=== PATIENT | male | born 1975 | race Caucasian/White ===

== ENCOUNTER 2017-02-19 20:20 | Inpatient (IN) | payer MEDICAID, OTHER ==
[~2017-02-19] VITALS: Ht 175.3 cm; Wt 120.1 kg
[~2017-02-19 20:20] MED LIST: ETOMIDATE 20 MG INJ ONE; PROPOFOL 200 MG INJ ONE; ROCURONIUM 50 MG INJ ONE
[2017-02-19] MEDS ORDERED: SOD CHLORIDE 0.9% 500 ML IV STA (20:24)
[2017-02-19] MEDS ORDERED: PIPER-TAZO 3.375 GM IV (PMX) 100 ML IVPB STA (20:38)
[2017-02-19] MEDS ORDERED: PROPOFOL 100 ML IV STA (20:39)
[2017-02-19] MEDS ORDERED: ETOMIDATE 20 MG INJ IV STA (20:39)
[2017-02-19] MEDS ORDERED: SOD CHLORIDE 0.9% 1,000 ML IV STA (20:39)
[2017-02-19] MEDS ORDERED: ROCURONIUM 50 MG INJ IV STA (20:39)
[2017-02-19 20:44] LABS: ADD SCAN DIFF NO
[2017-02-19 20:56] LABS: ABNORMAL IP MESSAGE 1; BASOPHILS % 0.2 % (0.0-2.0); HEMATOCRIT 22.6 % (42.0-52.0); HEMOGLOBIN 7.4 g/dl (14.0-18.0); LYMPHOCYTES # 1.6 10^3/ul (0.8-2.9); LYMPHOCYTES % 8.8 % (15.0-51.0); MEAN CORPUSCULAR HEMOGLOBIN 31.4 pg (29.0-33.0); MEAN CORPUSCULAR HGB CONC 32.7 g/dl (32.0-37.0); MEAN CORPUSCULAR VOLUME 95.8 fl (82.0-101.0); MEAN PLATELET VOLUME 11.9 fl (7.4-10.4); MONOCYTE # 2.1 10^3/ul (0.3-0.9); MONOCYTES % 11.8 % (0.0-11.0); NEUTROPHIL # 14.1 10^3/ul (1.6-7.5); NEUTROPHILS % 78.2 % (39.0-77.0); PLATELET COUNT 142 10^3/UL (140-415); RED BLOOD COUNT 2.36 10^6/ul (4.70-6.10); RED CELL DISTRIBUTION WIDTH 17.5 % (11.5-14.5)
[2017-02-19 21:02] LABS: ALBUMIN 3.1 g/dl (3.3-4.9)
[2017-02-19 21:03] LABS: CHLORIDE 99 mmol/L (97-110); INR 2.17; POTASSIUM 4.2 mmol/L (3.5-5.1); PROTIME 24.4 Sec (12.2-14.2); PT RATIO 1.9; SODIUM 139 mmol/L (135-144)
[2017-02-19 21:04] LABS: PARTIAL THROMBOPLASTIN TIME 35.7 Sec (25.0-35.0)
[2017-02-19 21:05] LABS: ALKALINE PHOSPHATASE 123 IU/L (42-121); ANION GAP 18 (8-16); ASPARTATE AMINO TRANSFERASE 76 IU/L (15-46); BILIRUBIN,INDIRECT 2.7 mg/dl (0-1.1); BLOOD UREA NITROGEN 26 mg/dl (7-20); CARBON DIOXIDE 26 mmol/L (21-31); CREATININE 0.75 mg/dl (0.61-1.24); TOTAL PROTEIN 7.8 g/dl (6.1-8.1)
[2017-02-19 21:06] LABS: ALANINE AMINOTRANSFERASE 39 IU/L (13-69); CALCIUM 8.3 mg/dl (8.4-10.2); GLUCOSE 224 mg/dl (70-220)
--- NOTE | 2017-02-19 21:07 | RADRPT ---
PROCEDURE: XR Chest. CLINICAL INDICATION: Assess endotracheal tube placement. TECHNIQUE: Single frontal view of the chest was obtained. COMPARISON: No. FINDINGS: The soft tissues are normal. The endotracheal tube is well-positioned at T2. There are osteophytes in the thoracic spine. There is a suboptimal inspiration. The heart is borderline enlarged. The cardiomediastinal silhouette and hilar structures are normal. The pulmonary vasculature is normal. There is a left-sided aorta. The lungs are clear. The costophrenic angles are normal. IMPRESSION: 1. The endotracheal tube is well positioned near T2. 2. Suboptimal inspiration with no evidence of active cardiopulmonary disease. RPTAT:AAJJ Physician Alex Date Time Electronically viewed and signed by Eyad [place] Physician on 02/19/2017 21:06 CATRACHITA/
[2017-02-19 21:09] LABS: ACETAMINOPHEN < 10.0 ug/ml (10.0-30.0); ALBUMIN/GLOBULIN RATIO 0.65; ETHANOL < 10.0 mg/dl
--- NOTE | 2017-02-19 21:10 | RADRPT ---
PROCEDURE: CT Brain without contrast. CLINICAL INDICATION: Stroke TECHNIQUE: A CT of the brain was performed on a [employer] 64-slice CT scanner utilizing axial imaging from the skull base through the vertex without IV contrast. Multiplanar reformatted images were made. Images were reviewed on a PACS workstation. The CTDIvol is 45.8 mGy and the DLP is 940 .95 mGycm. One of the following 3 dose reduction techniques were used: Automated exposure control; adjustment of the mA and/or kV according to patient size; or use of iterative reconstruction technique. COMPARISON: None FINDINGS: There is no intracranial hemorrhage, mass effect, or midline shift. No extra-axial fluid collection is seen. The ventricles and sulci are normal in size and configuration. The density of the brain is normal, and the alejandre white matter differentiation appears well-preserved. The visualized scalp is remarkable for multiple nodular soft tissue masses and correlate with possib le neurofibromatosis. The visualized orbits are normal. The bilateral paranasal sinuses demonstrate complete obstruction of the left maxillary sinus. A small air-fluid levels noted in the left poste rior ethmoid sinuses. The bilateral mastoid air cells and middle ear cavities are clear. IMPRESSION: 1. No evidence of acute hemorrhage, infarcts, or acute intracranial pathology. Consider MRI with di ffusion and contrast to further evaluate. 2. Diffuse nodular subcutaneous scalp lesions. Recommend additional imaging with MRI and consider neurofibromatosis type 1 and other neoplasms of the scalp. 3. Chronic left maxillary sinusitis and obstruction of the left ostiomeatal complex. 4. Acute left posterior ethmoid sinus disease. A call report was made to Saúl Benz at 02/19/2017 9:08:02 PM following the completion of the exam ination by the undersigned. RPTAT: HDC .Carolyn Heard MD, MD Date Time Electronically viewed and signed by .Carolyn Heard MD, MD on 02/19/2017 21:10 .C/
[2017-02-19] MEDS ORDERED: LACTULOSE 30ML CUP NGT ONE (21:30)
[2017-02-19 21:40] LABS: AADO2 Arterial 527.8 mmHg (7.0-24.0); Allen Test ACCEPTAB; Arterial Base Excess -0.4 mmol/L (-3.0-3); Arterial COHb 0.6 % (0.0-3.0); Arterial HCO3 23.7 mmol/L (22.0-26.0); Arterial MetHb 0.3 % (0.0-1.5); Arterial Total Hemglobin 7.8 g/dl (12.0-18.0); MODE VENT - AC
[2017-02-19] MEDS ORDERED: SOD CHLORIDE 0.9% 1,000 ML IV ONE (22:30)
--- NOTE | 2017-02-19 22:44 | RADRPT ---
PROCEDURE: XR Chest. CLINICAL INDICATION: Nasogastric tube placement. TECHNIQUE: Portable AP semi - supine view of the chest was obtained. COMPARISON: 02/19/2017 at 20:44 FINDINGS: The cardiomediastinal silhouette is within normal limits. Distal tip of the endotracheal tube remai ns in good position approximately 4 cm above the lisa. A new nasogastric/orogastric tube is seen with the distal tip below the diaphragm and inferior margin of the exposure in the region of the sto mach. The lungs are grossly clear. There is no evidence for pleural effusion, pneumothorax or pulm onary vascular congestion. The osseous structures are intact with no evidence for acute abnormality . RPTAT:HJJR IMPRESSION: 1. Distal tip of the new nasogastric/orogastric tube is below the diaphragm in the region of the st omach. 2. Endotracheal tube tip remains in good position approximately 4 cm above the lisa. 3. No evidence of acute intrathoracic pathology. Physician Gregg Date Time Electronically viewed and signed by Physician Gregg on 02/19/2017 22:44 /
[2017-02-19 23:12] VITALS: TEMP 99.1
[2017-02-20] VITALS (94 sets, daily range): BP systolic 53–180; BP diastolic 25–97; PULSE 70–140; RESP 18–43; Ht 175.3 cm; Wt 120.1 kg
--- NOTE | 2017-02-20 00:18 | ERA ---
ER Documentation Chief Complaint Date/Time DATE: 02/20/17 TIME: 00:03 Chief Complaint AMS HPI This 42-year-old male is brought in by ambulance because he was found at home with altered mental status and complete unresponsiveness. Family had initiated CPR at home because they were unable to feel pulses in the patient. Patient is completely unresponsive and paramedics have no current past medical history. ROS Unobtainable Medications Home Meds No Active Prescriptions or Reported Meds Allergies Allergies: Coded Allergies: No Known Drug Allergies (Unverified Allergy, Unknown, 02/19/17) PMhx/Soc Medical and Surgical Hx: Unable to obtain Hx Alcohol Use: No Hx Substance Use: No Hx Tobacco Use: No Smoking Status: Unknown if ever smoked Physical Exam Vitals Vital Signs Date Time Temp Pulse Resp B/P Pulse Ox O2 Delivery O2 Flow Rate FiO2 02/19/17 23:28 118 32 100 80 02/19/17 23:12 99.1 02/19/17 22:00 128 127/54 02/19/17 21:18 130 20 100 100 02/19/17 21:00 132 164/81 100 Mechanical Ventilator 02/19/17 20:24 102.5 146 36 138/124 100 02/19/17 20:20 Non Rebreather 15 Physical Exam Const: [] Severe distress, patient is occasionally twitching spitting completely unresponsive Head: Atraumatic Eyes: Pupils dilated and sluggish response to light, roving eye movements, pronounced scleral icterus ENT: Normal External Ears, Nose and Mouth. Neck: Full range of motion.. No JVD Resp: Bilateral rhonchorous breath sounds with bag mask ventilation Cardio: Regular tachycardia no murmurs Abd: Soft,, non distended. Normal bowel sounds Skin: No petechiae or rashes, jaundice Back: No midline or flank tenderness Ext: No cyanosis, or edema Neur: Patient completely unresponsive to stimuli, is moving all 4 extremities at different times, roving eye movements, positive corneal reflex, no other reflexes Result Diagram: 02/19/17202902/19/17 2030 Results 24 hrs Laboratory Tests Test 02/19/17 20:30 02/19/17 20:38 02/19/17 21:31 02/19/17 22:50 White Blood Count 18.010^3/ul Red Blood Count 2.3610^6/ul Hemoglobin 7.4g/dl Hematocrit 22.6% Mean Corpuscular Volume 95.8fl Mean Corpuscular Hemoglobin 31.4pg Mean Corpuscular Hemoglobin Concent 32.7g/dl Red Cell Distribution Width 17.5% Platelet Count 03637^3/UL Mean Platelet Volume 11.9fl Neutrophils % 78.2% Lymphocytes % 8.8% Monocytes % 11.8% Eosinophils % 0.0% Basophils % 0.2% Nucleated Red Blood Cells % 0.0/100WBC Neutrophils # 14.110^3/ul Lymphocytes # 1.610^3/ul Monocytes # 2.110^3/ul Eosinophils # 0.010^3/ul Basophils # 0.010^3/ul Nucleated Red Blood Cells # 0.010^3/ul Prothrombin Time 24.4Sec Prothrombin Time Ratio 1.9 INR International Normalized Ratio 2.17 Activated Partial Thromboplast Time 35.7Sec Sodium Level 139mmol/L Potassium Level 4.2mmol/L Chloride Level 99mmol/L Carbon Dioxide Level 26mmol/L Anion Gap 18 Blood Urea Nitrogen 26mg/dl Creatinine 0.75mg/dl Glucose Level 224mg/dl Hemoglobin A1c 5.7% Lactic Acid Level 5.3mmol/L 5.5mmol/L Calcium Level 8.3mg/dl Total Bilirubin 3.0mg/dl Direct Bilirubin 0.30mg/dl Indirect Bilirubin 2.7mg/dl Aspartate Amino Transf (AST/SGOT) 76IU/L Alanine Aminotransferase (ALT/SGPT) 39IU/L Alkaline Phosphatase 123IU/L Ammonia 306umol/l Troponin I 1.020ng/ml Total Protein 7.8g/dl Albumin 3.1g/dl Globulin 4.70g/dl Albumin/Globulin Ratio 0.65 Acetaminophen Level < 10.0ug/ml Ethyl Alcohol Level < 10.0mg/dl Bedside Glucose 231mg/dL Blood Gas Specimen Source Blood arterial Arterial Blood Date Drawn 02/19/2017 9:20:18 PM Arterial Blood pH (Temp corrected) 7.432 Arterial Blood pCO2 (Temp correct) 36.4mmhg Arterial Blood pO2 (Temp corrected) 148.8mmHG Arterial Blood HCO3 23.7mmol/L Arterial Blood Base Excess -0.4mmol/L Arterial Blood Oxygen Saturation 98.9mmHG Jackson Test ACCEPTAB Arterial Blood Gas Puncture Site Right Radial Arterial Blood Carboxyhemoglobin 0.6% Arterial Blood Methemoglobin 0.3% Blood Gas A-a O2 Differential 527.8mmHg Oxyhemoglobin Percent 98.0% Total Hemoglobin 7.8g/dl Blood Gas Temperature 37.0C Blood Gas Respiration Rate 16.0 Blood Gas Actual Respiration Rate 29 Blood Gas Modality VENT - AC FiO2 100.0% Blood Gas Tidal Volume 550.0mL Blood Gas Low PEEP Setting 5.0cmH2O Blood Gas Notified Whom UP Blood Gas Notified Time 02/19/2017 9:40:08 PM Current Medications Medications (Trade) Dose Ordered Sig/Kaylah Route PRN Reason Start Time Stop Time Status Last Admin Dose Admin Sodium Chloride 500 ml @ 500 mls/hr Q1H STAT IV 02/19/17 20:24 02/19/17 21:23 DC 02/19/17 21:30 Piperacillin Sod/ Tazobactam Sod 100 ml @ 200 mls/hr ONCE STAT IVPB 02/19/17 20:38 02/19/17 21:07 DC 02/19/17 21:37 Sodium Chloride (NS) 1,000 ml @ 1,000 mls/hr Q1H STAT IV 02/19/17 20:39 02/19/17 21:38 DC 02/19/17 21:28 Rocuronium [place] (Zemuron) 100 mg ONCE STAT IV 02/19/17 20:39 02/19/17 20:41 DC 02/19/17 21:28 Etomidate 20 mg 20 mg ONCE STAT IV 02/19/17 20:39 02/19/17 20:41 DC 02/19/17 21:27 Propofol (Diprivan) 100 ml @ 3 mls/hr ONCE STAT IV 02/19/17 20:39 02/21/17 05:58 02/19/17 21:26 Lactulose 40 gm 40 gm ONCE ONCE NGT 02/19/17 21:30 02/19/17 21:31 DC 02/19/17 22:12 Sodium Chloride (NS) 1,000 ml @ 1,000 mls/hr Q1H ONCE IV 02/19/17 22:30 02/19/17 23:29 DC 02/19/17 23:49 Procedures/MDM Hepatic encephalopathy and upper GI bleed. Patient was in extremis on arrival. Occasional nonrhythmic twitching with tachypnea and spitting. Patient was intubated for airway protection and to be able to obtain a CAT scan as his presentation seemed consistent with possible intracerebral hemorrhage. Negative for hemorrhage or obvious large stroke. Patient's ammonia was extremely elevated which likely explains his altered mental status. Is also febrile on arrival and was given Zofran for possible sepsis although source is still not clear. Fever may be associated with his muscle twitching. After OGT was placed patient had return of dark fluid consistent with old blood. Patient does have a history of esophageal varices. I spoke to Dr. Paez notified of the patient who will see in consult. I am transfusing 2 units of packed red blood cells. Patient also has an elevated troponin of 1. EKG currently shows no tachycardia repeating EKG. Unable to give heparin because of current GI bleed. Troponin will be trended. Patient was given a total of 60 mg of lactulose through NG tube in the emergency room so far. Was given 3 L of fluid as well. He is being admitted to ICU for further critical care management. I spoke with who will be admitting. EKG interpretation: Sinus tachycardia rate of 148, normal axis, no ST or T-wave changes concerning for acute ischemia, court recording monitor interpretation: Sinus tachycardia improved with fluid administration, no other arrhythmias Chest x-ray interpretation: I see no acute process, no widened mediastinum, no pneumothorax, no pulmonary edema, no fractures CT head interpretation: No acute process, no hemorrhage, no mass-effect no midline shift, no fractures. Critical care time 56 minutes: This includes treatment of extremely unstable patient with multifactorial illness, very careful fluid administration, blood product administration, ventilator management, treatment of unstable vital signs , discussion with admitting doctor and patient's family, chart review, multiple visits the patient's bedside to reassess status. This does not include any billable procedures ET intubation note: Patient was bag mask ventilated to 100% oxygenation, RSI was used with etomidate and rocuronium. Patient was easily intubated with a 7.5 ET tube through visualized cords using a MAC 4 blade. One attempt was made there were no complications. Oxygenation was 100% after the procedure with good entitled CO2 color change. Confirmed by chest x-ray. Perfusion Reassessment for Septic Shock: Time 2316 Temp 98.9, Pulse 111, RR 16, BP 126/79 Heart Exam: [Tachycardic] Lung Exam: [No Crackles] Capillary Refill: [Approximately 2 seconds] Peripheral Pulses: [Radially present] Skin: [Jaundice, not mottled] Departure Diagnosis: Primary Impression: Hepatic encephalopathy Additional Impressions: Sepsis Upper GI bleed Blood loss anemia Respiratory failure Non-STEMI (non-ST elevated myocardial infarction) Condition: Critical EDI IBARRA DO February 20, 2017 00:15
[2017-02-20] MEDS ORDERED: LACTULOSE 30ML CUP NGT ONE (00:30)
[2017-02-20] MEDS ORDERED: NORepinephrine 8MG/250 ML (PMX 250 ML IV SCH ×2 (00:30→16:30)
[2017-02-20] MEDS ORDERED: SOD CHLORIDE 0.9% 500 ML IV ONE (00:30)
[2017-02-20] MEDS ORDERED: VANCOMYCIN IV PER PHARMACY XX SCH (00:30)
[2017-02-20] MEDS: PROPOFOL 100 ML IV SCH ×4 (01:35→12:48)
[2017-02-20] MEDS ORDERED: VANCOMYCIN 2 GM in SOD CHLORIDE 0.9% 500 ML IVPB ONE (02:00)
[2017-02-20] MEDS: OCTREOTIDE 1 MG in SOD CHLORIDE 0.9% 95 ML IV SCH ×3 (02:04→21:28)
[2017-02-20] MEDS ORDERED: morphine 4 MG/ML VIAL IV PRN (06:00)
[2017-02-20] MEDS ORDERED: LORAZEPAM 2 MG INJ IV ONE (06:00)
[2017-02-20] MEDS: SOD CHLORIDE 0.45% 1,000 ML IV SCH ×2 (08:13→08:24)
[2017-02-20] MEDS: CEFEPIME 1GM/50 ML (PMX) 50 ML IVPB SCH ×2 (08:22→20:47)
[2017-02-20] MEDS: LORAZEPAM 2 MG INJ IV PRN ×3 (08:29→15:24)
[2017-02-20] MEDS: PANTOPRAZOLE IV 80 MG in SOD CHLORIDE 0.9% 100 ML IV SCH ×2 (08:43→17:51)
[2017-02-20 08:58] LABS: ADD SCAN DIFF NO
[2017-02-20] MEDS: VANCOMYCIN 2 GM in SOD CHLORIDE 0.9% 500 ML IVPB ONE ×2 (09:00→09:27)
[2017-02-20 09:02] LABS: ABNORMAL IP MESSAGE 1; MEAN CORPUSCULAR HEMOGLOBIN 29.9 pg (29.0-33.0); MEAN CORPUSCULAR VOLUME 93.3 fl (82.0-101.0); MEAN PLATELET VOLUME 11.5 fl (7.4-10.4); PLATELET COUNT 128 10^3/UL (140-415); RED BLOOD COUNT 2.68 10^6/ul (4.70-6.10); RED CELL DISTRIBUTION WIDTH 19.1 % (11.5-14.5)
[2017-02-20] MEDS: ACETAMINOPHEN 325 MG TAB PO PRN ×2 (09:14→15:23)
--- NOTE | 2017-02-20 09:16 | HP ---
DATE OF ADMISSION: 02/19/2017 TIME SEEN: 2300 CHIEF COMPLAINT: Altered mentation and unresponsiveness. HISTORY OF PRESENT ILLNESS: The patient is a 42-year-old male with history of alcohol abuse who pre sents to the emergency department after the patient was found to be severely unresponsive at home. When EMS arrived, family was performing CPR, but he actually did have a strong pulse and was tachyc ardic in the 140s. When the patient presented to the ER, he was very minimally responsive with some involuntary movements. The patient was orally intubated. Laboratory values were notable for BUN 2 6, glucose 224, total bilirubin 3. AST 76, ammonia 306. First troponin 1.02. WBC 18,000, hemoglobi n 7.4. When an OG tube was placed, dark fluid was suctioned. The patient was also febrile with a t emperature of 102.5. The patient has been started on blood transfusion and currently admitted to [facility]. REVIEW OF SYSTEMS: Unable to assess. PAST MEDICAL HISTORY: Unknown. PAST SURGICAL HISTORY: Unknown. SOCIAL HISTORY: History of alcohol abuse. ALLERGIES: NO KNOWN DRUG ALLERGIES. HOME MEDICATIONS: None listed. PHYSICAL EXAMINATION: VITAL SIGNS: Blood pressure 127/52, heart rate 128, respiratory rate 20, temperature 99.1, oxygen s aturation 100% on 80% FiO2 on the vent. GENERAL: The patient is intubated, sedated, on propofol; however, he is noted to be moving his body and looking comfortable. HEENT: Normocephalic. His pupils are sluggish. CARDIOVASCULAR: ____ with regular rhythm. LUNGS: He has rhonchi with decreased breath sounds at the bases. ABDOMEN: Soft, nondistended. EXTREMITIES: No edema. NEUROLOGIC: Currently patient intubated and sedation, unable to fully assess. LABORATORY DATA: Pertinent positives as mentioned in the HPI. IMAGING: Brain CT shows no evidence of acute hemorrhage, infarct, or intracranial pathology; howeve r, a diffuse nodular subcutaneous scalp lesion was noted along with chronic left maxillary sinusitis and obstruction of the left ostiomeatal complex. Also noted was acute left posterior ethmoid ____. Chest x-ray: Shows heart is borderline enlarged with no evidence of acute cardiopulmonary diseas e. IMPRESSION: 1. Hepatic encephalopathy. 2. Ventilator-dependent respiratory failure, secondary to encephalopathy. 3. Anemia, likely secondary to gastrointestinal bleed. 4. Rule out gastrointestinal bleed. 5. Sepsis, as evidenced by fever, leukocytosis, and tachycardia, possibly from early developing asp iration pneumonia given presentation of altered mentation. 6. Positive troponin. 7. Hyperglycemia, likely undiagnosed diabetes. 8. Diffuse nodular subcutaneous scalp lesion. 9. Acute left posterior ethmoid sinus disease. 10. Chronic maxillary sinusitis. PLAN: Continue ICU monitoring. Continue ventilator support. A GI consult has been placed in the E R, so will follow up on recommendation. Will start him on a lactulose enema given severely elevated ammonia. Continue blood transfusion and monitor H and H closely. Given positive troponin, will pl rachel a cardiology consult, will obtain a 2-D echo and trend his troponins, but seems like the result of demand ischemia. EKG without ST-elevation or depression. Will check an A1c, FOBT. Also given s eptic presentation, will send blood culture and urine culture as well as culture from tracheal aspir ate. He will be placed on broad-spectrum antibiotics. Given the patient was unresponsive with maynor re altered mentation, he was at risk for aspiration even though chest x-ray is not suggestive of shaka t. Will do a urine drug toxicology screen. Also given abnormal brain CT showing diffuse nodular millan bcutaneous scalp lesion, will obtain an MRI for further evaluation. Further workup and management per clinical course. Dictated By: CHANTAL WASHINGTON/AV Conf#: [id number] DID#: [id number]
[2017-02-20 09:23] LABS: ALBUMIN 2.7 g/dl (3.3-4.9)
[2017-02-20 09:24] LABS: POTASSIUM 4.1 mmol/L (3.5-5.1)
[2017-02-20 09:26] LABS: ALBUMIN/GLOBULIN RATIO 0.6; BILIRUBIN,INDIRECT 2.7 mg/dl (0-1.1); BILIRUBIN,TOTAL 3.7 mg/dl (0.2-1.3); CREATININE 0.92 mg/dl (0.61-1.24); IRON 71 ug/dl (35-150); TOTAL PROTEIN 7.2 g/dl (6.1-8.1)
[2017-02-20 09:27] LABS: CALCIUM 7.6 mg/dl (8.4-10.2)
[2017-02-20] MEDS ORDERED: FENTAnyl (DRIP) 1000 mcg/100mL 100 ML IV SCH (09:30)
[2017-02-20 09:32] LABS: AADO2 Arterial 390.3 mmHg (7.0-24.0); Allen Test ACCEPTAB; Arterial Base Excess 3.9 mmol/L (-3.0-3); Arterial COHb 0.3 % (0.0-3.0); Arterial Fraction of Oxyhgb 92.5 % (93.0-99.0); Arterial HCO3 27.5 mmol/L (22.0-26.0); Arterial MetHb 0.4 % (0.0-1.5); Arterial Total Hemglobin 8.3 g/dl (12.0-18.0); MODE VENT - AC
[2017-02-20 09:35] LABS: TOTAL IRON BINDING CAPACITY 294 ug/dl (241-421)
[2017-02-20 09:55] LABS: BASOPHIL # 0.3 10^3/ul (0.0-0.1); LYMPHOCYTES # 2.6 10^3/ul (0.8-2.9); MONOCYTE # 1.8 10^3/ul (0.3-0.9); NEUTROPHIL # 21.1 10^3/ul (1.6-7.5)
[2017-02-20 09:56] LABS: HYPOCHROMASIA 1+
[2017-02-20] MEDS ORDERED: LIDOCAINE 1% (MPF) 5 ML VIAL SC ONE ×3 (10:00→16:30)
[2017-02-20] MEDS ORDERED: SOD CHLORIDE 0.9% 1,000 ML IV ONE ×2 (10:30→21:30)
--- NOTE | 2017-02-20 10:49 | CONS ---
Date/Time of Note Date/Time of Note DATE: 02/20/17 TIME: 10:41 Assessment/Plan Assessment/Plan Additional Assessment/Plan SIRS Respiratory failure Acute blood loss anemia with presumed GI bleed Elevated troponin Elevated ammonia concerning for hepatic encephalopathy -Patient's elevated troponin likely manifestation of GI bleed, fevers and possible sepsis. Given GI bleed, unable to give aspirin at the current time. Given abnormal liver function, unable to give statin at the current time. Given labile blood pressure, unable to give beta-shon at the current time. Would continue aggressive volume resuscitation. Check serial cardiac enzymes, continue telemetry monitoring, check echocardiogram. Consultation Date/Type/Reason Admit Date/Time February 19, 2017 at 22:58 Type of Consultation: cv Reason for Consultation Elevated troponin Hx of Present Illness This is a 42-year-old male who was found at home unresponsive. History was obtained from the medical chart. Family was unsure if patient had a pulse and CPR was initiated until EMS arrived. Patient did have a pulse upon arrival patient transferred to the emergency room for further evaluation and care. Patient intubated and found to have a GI bleed with significant abnormal laboratory studies with severe anemia, elevated ammonia levels and lactic acid as well as elevated troponin. Patient status post blood transfusion and transferred to the ICU for further management and care. Given elevated troponins, cardiology consultation was requested. Discussion with nursing staff , patient has remained off IV pressors. He is currently sedated and receiving IV fluids. Unable to be performed at the current time given patient's mental status Past Medical History Unknown Past Surgical History Unknown Social History History of alcohol use Smoking Status: Unknown if ever smoked Exam/Review of Systems Vital Signs Vitals Vital Signs Date Time Temp Pulse Resp B/P Pulse Ox O2 Delivery O2 Flow Rate FiO2 02/20/17 09:15 131 33 103/44 97 Mechanical Ventilator 02/20/17 08:00 103.0 02/20/17 05:49 70 02/19/17 20:20 15 Intake and Output 02/19/17 02/19/17 02/20/17 15:00 23:00 07:00 Intake Total 674 ml Output Total 2050 ml Balance -1376 ml Exam Sedated and intubated, no apparent distress Head: normocephalic ENMT: intubated Respiratory: other (Coarse breath sounds bilaterally, no wheezing) Cardiovascular: other (S1-S2 heard), regular rate and rhythm (Tachycardic) Gastrointestinal: bowel sounds, other (No grimacing or guarding with palpation of abdomen), soft Extremities: edema (Trace) Results Result Diagram: 02/20/17 0849 02/20/17 0849 Results 24 hrs Laboratory Tests Test 02/19/17 20:30 02/19/17 20:38 02/19/17 21:31 02/19/17 22:50 White Blood Count 18.0 H Red Blood Count 2.36 L Hemoglobin 7.4 L Hematocrit 22.6 L Mean Corpuscular Volume 95.8 Mean Corpuscular Hemoglobin 31.4 Mean Corpuscular Hemoglobin Concent 32.7 Red Cell Distribution Width 17.5 H Platelet Count 142 Mean Platelet Volume 11.9 H Neutrophils % 78.2 H Lymphocytes % 8.8 L Monocytes % 11.8 H Eosinophils % 0.0 Basophils % 0.2 Nucleated Red Blood Cells % 0.0 Neutrophils # 14.1 H Lymphocytes # 1.6 Monocytes # 2.1 H Eosinophils # 0.0 Basophils # 0.0 Nucleated Red Blood Cells # 0.0 Prothrombin Time 24.4 H Prothrombin Time Ratio 1.9 INR International Normalized Ratio 2.17 Activated Partial Thromboplast Time 35.7 H Sodium Level 139 Potassium Level 4.2 Chloride Level 99 Carbon Dioxide Level 26 Anion Gap 18 H Blood Urea Nitrogen 26 H Creatinine 0.75 Glucose Level 224 H Hemoglobin A1c 5.7 Lactic Acid Level 5.3 *H 5.5 *H Calcium Level 8.3 L Total Bilirubin 3.0 H Direct Bilirubin 0.30 H Indirect Bilirubin 2.7 H Aspartate Amino Transf (AST/SGOT) 76 H Alanine Aminotransferase (ALT/SGPT) 39 Alkaline Phosphatase 123 H Ammonia 306 H Troponin I 1.020 *H Total Protein 7.8 Albumin 3.1 L Globulin 4.70 H Albumin/Globulin Ratio 0.65 Acetaminophen Level < 10.0 L Ethyl Alcohol Level < 10.0 Bedside Glucose 231 H Blood Gas Specimen Source Blood arterial Arterial Blood Date Drawn 02/19/2017 9:20:18 PM Arterial Blood pH (Temp corrected) 7.432 Arterial Blood pCO2 (Temp correct) 36.4 Arterial Blood pO2 (Temp corrected) 148.8 H Arterial Blood HCO3 23.7 Arterial Blood Base Excess -0.4 Arterial Blood Oxygen Saturation 98.9 H Jackson Test ACCEPTAB Arterial Blood Gas Puncture Site Right Radial Arterial Blood Carboxyhemoglobin 0.6 Arterial Blood Methemoglobin 0.3 Blood Gas A-a O2 Differential 527.8 H Oxyhemoglobin Percent 98.0 Total Hemoglobin 7.8 L Blood Gas Temperature 37.0 Blood Gas Respiration Rate 16.0 Blood Gas Actual Respiration Rate 29 Blood Gas Modality VENT - AC FiO2 100.0 Blood Gas Tidal Volume 550.0 Blood Gas Low PEEP Setting 5.0 Blood Gas Notified Whom UP Blood Gas Notified Time 02/19/2017 9:40:08 PM Test 02/20/17 00:10 02/20/17 05:40 02/20/17 08:34 02/20/17 08:49 Lactic Acid Level 4.9 *H Lab Scanned Report BLOOD TRANSFUSION Blood Gas Specimen Source Blood arterial Arterial Blood Date Drawn 02/20/2017 9:25:28 AM Arterial Blood pH (Temp corrected) 7.490 H Arterial Blood pCO2 (Temp correct) 36.9 Arterial Blood pO2 (Temp corrected) 69.1 L Arterial Blood HCO3 27.5 H Arterial Blood Base Excess 3.9 H Arterial Blood Oxygen Saturation 93.2 L Jackson Test ACCEPTAB Arterial Blood Gas Puncture Site Right Radial Arterial Blood Carboxyhemoglobin 0.3 Arterial Blood Methemoglobin 0.4 Blood Gas A-a O2 Differential 390.3 H Oxyhemoglobin Percent 92.5 L Total Hemoglobin 8.3 L Blood Gas Temperature 37.0 Blood Gas Respiration Rate 16.0 Blood Gas Actual Respiration Rate 34 Blood Gas Modality VENT - AC FiO2 70.0 Blood Gas Tidal Volume 550.0 Blood Gas Low PEEP Setting 5.0 Blood Gas Notified Whom BT Blood Gas Notified Time 02/20/2017 9:31:46 AM White Blood Count 26.1 #H Red Blood Count 2.68 L Hemoglobin 8.0 L Hematocrit 25.0 L Mean Corpuscular Volume 93.3 Mean Corpuscular Hemoglobin 29.9 Mean Corpuscular Hemoglobin Concent 32.0 Red Cell Distribution Width 19.1 H Platelet Count 128 L Mean Platelet Volume 11.5 H Neutrophils % 81.0 H Band Neutrophils % 1.0 Lymphocytes % 10.0 L Monocytes % 7.0 Basophils % 1.0 Neutrophils # 21.1 H Lymphocytes # 2.6 Monocytes # 1.8 H Basophils # 0.3 H Polychromasia Hypochromasia 1+ Sodium Level 144 Potassium Level 4.1 Chloride Level 107 Carbon Dioxide Level 26 Anion Gap 15 Blood Urea Nitrogen 36 H Creatinine 0.92 Glucose Level 138 # Calcium Level 7.6 L Iron Level 71 Total Iron Binding Capacity 294 Percent Iron Saturation 24 Ferritin 29.0 Total Bilirubin 3.7 H Direct Bilirubin 1.00 #H Indirect Bilirubin 2.7 H Aspartate Amino Transf (AST/SGOT) 84 H Alanine Aminotransferase (ALT/SGPT) 40 Alkaline Phosphatase 114 Total Protein 7.2 Albumin 2.7 L Globulin 4.50 H Albumin/Globulin Ratio 0.60 Medications Medications Current Medications Pantoprazole 80 mg/Sodium Chloride 100 ml @ 10 mls/hr Q10H IV Last administered on 02/20/17 08:43; Admin Dose 10 MLS/HR; Start 02/20/17 at 00:24 Octreotide Acetate 1 mg/ Sodium Chloride 100 ml @ 5 mls/hr Q20H IV Last administered on 02/20/17 08:21; Admin Dose 5 MLS/HR; Start 02/20/17 at 00:24 Cefepime HCl 50 ml @ 100 mls/hr Q12 IVPB Last administered on 02/20/17 08:22 ; Admin Dose 100 MLS/HR; Start 02/20/17 at 00:30 Propofol (Diprivan) 100 ml @ 3 mls/hr Q12H IV Last administered on 02/20/17 08 :47; Admin Dose 30 MLS/HR; Start 02/20/17 at 02:00 Lorazepam 1 mg 1 mg Q1HWA PRN IV ANXIETY Last administered on 02/20/17 08:29; Admin Dose 1 MG; Start 02/20/17 at 06:00 Norepinephrine/ Dextrose (Levophed/D5W) 500 ml @ 1.87 mls/hr TITRATE IV ; Start 02/20/17 at 09:00 Morphine Sulfate (morphine) 3 mg Q4H PRN IV PAIN LEVEL 4-6 Last administered on 02/20/17 08:07; Admin Dose 3 MG; Start 02/20/17 at 06:00; Stop 02/23/17 at 05:59 Lactulose 100 ml 100 ml Q8 [place] ; Start 02/20/17 at 14:00 Vancomycin HCl 2 gm/Sodium Chloride 500 ml @ 125 mls/hr ONCE ONCE IVPB Last administered on 02/20/17 09:00; Admin Dose 125 MLS/HR; Start 02/20/17 at 10:00 ; Stop 02/20/17 at 13:59 Vancomycin HCl/ Sodium Chloride (Vancocin/NS) 250 ml @ 83.333 mls/ hr Q12H IVPB ; Start 02/20/17 at 22:00 Acetaminophen 650 mg 650 mg Q6H PRN PO PAIN AND OR ELEVATED TEMP Last administered on 02/20/17 09:14; Admin Dose 650 MG; Start 02/20/17 at 09:00 Fentanyl 100 ml @ 2.5 mls/hr TITRATE IV ; Start 02/20/17 at 09:30 Sodium Chloride 1,000 ml @ 125 mls/hr Q8H IV ; Start 02/20/17 at 10:30 Sodium Chloride (NS) 1,000 ml @ 1,000 mls/hr Q1H ONCE IV Last administered on 02/20/17 10:36; Admin Dose 1,000 MLS/HR; Start 02/20/17 at 10:30; Stop at 11:29 Procedures Procedures ECG done this morning demonstrates sinus tachycardia at 135 bpm, QRS 60 ms, nonspecific STT wave abnormalities Uriel Paez DO February 20, 2017 10:49
[2017-02-20 11:41] LABS: CK-MB 8.38 ng/ml (0.0-2.4)
[2017-02-20 11:42] LABS: ADD UMIC YES; URINE BILIRUBIN (Dip) 1+ (NEGATIVE); URINE BLOOD (Dip) 3+ (NEGATIVE); URINE GLUCOSE (Dip) NEGATIVE (NEGATIVE); URINE KETONES (Dip) 15 (NEGATIVE); URINE LEUKOCYTE ESTERASE (Dip) TRACE (NEGATIVE); URINE NITRITE (Dip) NEGATIVE (NEGATIVE); URINE TOTAL PROTEIN (Dip) TRACE (NEGATIVE); URINE UROBILINOGEN (Dip) 1.0 E.U./dL (0.1-1.0)
[2017-02-20 11:45] LABS: TROPONIN-I 4.95 ng/ml (0.00-0.12)
[2017-02-20] MEDS: SOD CHLORIDE 0.9% 1,000 ML IV SCH ×2 (12:13→18:30)
[2017-02-20] MEDS: METOPROLOL 25 MG TAB GTB SCH ×2 (12:18→20:35)
[2017-02-20 12:21] LABS: ICTOTEST NEGATIVE (NEGATIVE); URINE COLOR AMBER (YELLOW)
[2017-02-20 12:22] LABS: BACTERIA,URINE OCCASIONAL
[2017-02-20 12:26] LABS: HEMATOCRIT 25.3 % (42.0-52.0)
[2017-02-20 12:27] LABS: BARBITURATES Negative (NEGATIVE); BENZODIAZEPINES Negative (NEGATIVE); COCAINE Negative (NEGATIVE)
[2017-02-20 12:56] LABS: CANNABINOIDS Positive (NEGATIVE)
[2017-02-20 12:57] LABS: OPIATES Positive (NEGATIVE)
--- NOTE | 2017-02-20 12:58 | CONS ---
DATE OF ADMISSION: 02/19/2017 DATE OF CONSULTATION: 02/20/2017 PULMONARY CONSULTATION REASON FOR CONSULTATION: Respiratory failure. Thank you, Dr. Alex, for this consultation. HISTORY OF PRESENT ILLNESS: This is a 42-year-old gentleman with history of heavy alcohol abuse, wa s unresponsive at home. Upon arrival, family was performing CPR; however, patient apparently, per earl madison, had a pulse that was palpable. Upon arrival, he was intubated on mechanical ventilation with evidence of GI bleed from coffee-ground ____ gastric tube. The patient in addition remains febrile, temperature 102.5, and was found to have a significantly elevated ammonia level of 306. PAST MEDICAL HISTORY: Unknown. MEDICATIONS: Unknown. ALLERGIES: UNKNOWN. SOCIAL HISTORY: Positive alcohol history, tobacco and drug use unknown. PHYSICAL EXAMINATION: GENERAL: Chronically ill appearing gentleman, tachypneic on mechanical ventilation. VITAL SIGNS: Currently temperature is 103, pulse is 130, blood pressure 103/44, O2 saturation 96%, FIO2 of 100%. NECK: Supple. No JVD or lymphadenopathy. CARDIAC: S1, S2, tachycardia. CHEST: Diminished air entry bilaterally. ABDOMEN: Distended, soft, nontender. No guarding or rebound. EXTREMITIES: No cyanosis, clubbing, ____ edema. NEUROLOGIC: Generalized weakness. LABORATORIES: White count 26.1, hemoglobin 8, platelets are 128. BUN 36, creatinine 0.92. ABG: P H 7.49, pCO2 of 36, PaO2 of 69. Total bilirubin 3.7, indirect 2.7, lactic acid was 4.9, originally 5.3. DIAGNOSTIC DATA: Chest x-ray was reviewed, shows no significant disease. CT of the brain: No acut e hemorrhage, nodular subcutaneous scalp lesions noted, possible neurofibromatosis. IMPRESSION AND PLAN: 1. Cardiac arrest. 2. Likely significant ethanol history. 3. Elevated ammonia with evidence of liver failure. 4. Gastrointestinal bleed. 5. Incomplete data. The patient will require: 1. Continued mechanical ventilation. 2. Continued broad-spectrum antibiotics. 3. Aggressive volume resuscitation. 4. Gastrointestinal evaluation for endoscopy. 5. Protonix and octreotide drip. 6. DVT and GI prophylaxis. Dictated By: JOSE ENRIQUE PERRIN/AV Conf#: [id number] DID#: [id number]
--- NOTE | 2017-02-20 13:13 | RADRPT ---
Echocardiogram Report Patient Name: ANDRE BAIN Gender: Male Date: 1975 Study Date: 20-Feb-2017 [employer]iler Park Manager: Virgilio Monroe LUPILLO Location: [facility] Ref. Physician: URIEL PAEZ Quality: Good Procedures: Transthoracic echocardiogram with complete 2D, M-Mode, and doppler examination. Indications: Elevated troponin, respiratory failure. 2D/M Mode Doppler Measurement Value Normal Ranges Measurement Value Normal Ranges LVIDd 2D 5.5 3.5 - 5.6 cm AV Mean Eduardo 3.3 m/sec LVIDs 2D 2.1 2.1 - 4.1 cm AV Mean PG 59.0 mmHg FS 2D 61.7 % AV Peak Eduardo 6.3 m/sec LVPWd 2D 1.3 0.6 - 1.1 cm AV Peak PG 158.0 mmHg IVSd 2D 1.2 0.6 - 1.1 cm AV VTI 104.0 cm IVS/LVPW 2D 0.9 LVOT Peak Eduardo 1.7 m/sec AoR Diam 2D 3.2 2.0 - 3.7 cm LVOT Peak PG 12.0 mmHg LA/Ao 2D 1 0 - 1 TR Peak Eduardo 3.3 m/sec EDV 2D 167.0 cm3 TR Peak PG 45.0 mmHg ESV 2D 9.4 cm3 RVSP 53.0 mmHg LA Dimen 2D 4.4 2.3 - 4.0 cm Findings Left Ventricle: Hyperdynamic left ventricular systolic function. Normal left ventricular cavity size. Mild concentric left ventricular hypertrophy. Ejection fraction is visually estimated at 75 %. Tissue Doppler/Mitral Doppler indices are consistent with impaired relaxation (Stage I diastolic dysfunction). Resting left ventricular outflow tract velocity 6.28 m/sec. Right Ventricle: Normal right ventricular size. Normal right ventricular systolic function. Left Atrium: There is mild enlargement of left atrium. Right Atrium: The right atrium is normal in size. Mitral Valve: Normal appearance and function of the mitral valve with trace physiologic regurgitation. Aortic Valve: Normal appearance of the aortic valve. No significant aortic stenosis or insufficiency. Tricuspid Valve: Normal appearance and function of the tricuspid valve with trace physiologic regurgitation. Estimated peak PA systolic pressure 53 mmHg. Pulmonic Valve: Pulmonic valve not well visualized. Pericardium: Normal pericardium with no significant pericardial effusion. Aorta: Normal aortic root. IVC: Dilated inferior vena cava with respiratory collapse, however, patient on ventilator. Conclusions 1.Hyperdynamic left ventricular systolic function. Normal left ventricular cavity size. Mild concentric left ventricular hypertrophy. Ejection fraction is visually estimated at 75 %. Tissue Doppler/Mitral Doppler indices are consistent with impaired relaxation (Stage I diastolic dysfunction). 2.Normal right ventricular size. Normal right ventricular systolic function. 3.There is mild enlargement of left atrium. 4.The right atrium is normal in size. 5.No significant valvular stenosis or regurgitation seen. 6.Normal pericardium with no significant pericardial effusion. Electronically Signed By: Uriel Paez 20-Feb-2017 13:13:29 -0700 Patient Name: ANDRE BAIN Study Date: 20-Feb-2017 [id number]
--- NOTE | 2017-02-20 13:25 | RADRPT ---
Vent Rate: 135 bpm RR Interval: 0 msec NE Interval: 116 msec QRS Duration: 68 msec QT Interval: 302 msec QTC Interval: 453 msec P-R-T [place]: 16 - 31 - 5 degrees Sinus tachycardia Otherwise normal ECG Electronically Signed By: Uriel Paez [id number]
[2017-02-20] MEDS ORDERED: VANCOMYCIN 1.5 GM in SOD CHLORIDE 0.9% 250 ML IVPB SCH ×2 (14:00→22:00)
--- NOTE | 2017-02-20 14:15 | CONS ---
Date/Time of Note Date/Time of Note DATE: 02/20/17 TIME: 13:58 Assessment/Plan Assessment/Plan Additional Assessment/Plan Assessment * S/P cardiac arrest * Hematemesis Upper GI bleed ,likely esophageal varices peptic ulcer disease vs others * Elevated troponin T/C ACS * Elevated ammonia Hepatic encephalopathy Plan * EGD today risks and benefit explained to familly and agreed with plan * Continue present management * Transfuse 2 units FFP * Monitor Hand H and transfuse per protocol Consultation Date/Type/Reason Admit Date/Time February 19, 2017 at 22:58 Date of Consultation: February 20, 2017 Type of Consultation: Gasroenterology Reason for Consultation upper gi bleed Referring Provider: CRISTINA GALARZA Hx of Present Illness 42 year old male brought by EMT because of cardiac arrest.Present condition [id number] hours prior to admission as hematemesis x3 approximately 100 cc per episode .No associated hematochezia,abdominal pain ,chest pain nor fever .No consultation .6 hours prior to admission ,patient was restless and confused patient apparently went to sleep however family member noted that patient became unresponsive hence CPR was started and 911 was called. Emergency room course,patient was intubated ,laboratory showed leukocytosis wbc 18 hgb 7.4 ,PT 24.4,INR 2.17,PTT 35.7 ,Troponin1.020 ,Total bilirubin 3 AST 76, ALT 39.,alkaline phosphatase 123. CT scan brain No evidence of acute hemorrhage , infarcts, or acute intracranial pathology. Consider MRI with diffusion and contrast to further evaluate. Diffuse nodular subcutaneous scalp lesions. Recommend additional imaging with MRI and consider neurofibromatosis type 1 and other neoplasms of the scalp.. Chronic left maxillary sinusitis and obstruction of the left ostiomeatal complex.. Acute left posterior ethmoid sinus disease.. Presently 2 units of PRBC was transfused,madhavi gastric tube revealed a yellowish fluid.Patient is currently intubated on ventilator with no active bleeding. Family History Significant Family History: no pertinent family hx Social History Alcohol Use: heavy Smoking Status: Unknown if ever smoked Exam/Review of Systems Vital Signs Vitals Vital Signs Date Time Temp Pulse Resp B/P Pulse Ox O2 Delivery O2 Flow Rate FiO2 02/20/17 13:18 119 40 92 100 02/20/17 12:30 109/44 Mechanical Ventilator 02/20/17 12:00 100.8 02/19/17 20:20 15 Intake and Output 02/19/17 02/19/17 02/20/17 14:59 22:59 06:59 Intake Total 674 ml Output Total 1600 ml Balance -926 ml Exam Constitutional: frail Head: normocephalic Eyes: other (pupils dilated,sluggishly reactive) Neck: non-tender, supple Respiratory: diminished breath sounds, other (ventilator) Gastrointestinal: bowel sounds, distended, soft Musculoskeletal: nl extremities to inspection, nl gait and stance Extremities: normal pulses Results Result Diagram: 02/20/17 1148 02/20/17 0849 Results 24 hrs Laboratory Tests Test 02/19/17 20:30 02/19/17 20:38 02/19/17 21:31 02/19/17 22:50 White Blood Count 18.0 H Red Blood Count 2.36 L Hemoglobin 7.4 L Hematocrit 22.6 L Mean Corpuscular Volume 95.8 Mean Corpuscular Hemoglobin 31.4 Mean Corpuscular Hemoglobin Concent 32.7 Red Cell Distribution Width 17.5 H Platelet Count 142 Mean Platelet Volume 11.9 H Neutrophils % 78.2 H Lymphocytes % 8.8 L Monocytes % 11.8 H Eosinophils % 0.0 Basophils % 0.2 Nucleated Red Blood Cells % 0.0 Neutrophils # 14.1 H Lymphocytes # 1.6 Monocytes # 2.1 H Eosinophils # 0.0 Basophils # 0.0 Nucleated Red Blood Cells # 0.0 Prothrombin Time 24.4 H Prothrombin Time Ratio 1.9 INR International Normalized Ratio 2.17 Activated Partial Thromboplast Time 35.7 H Sodium Level 139 Potassium Level 4.2 Chloride Level 99 Carbon Dioxide Level 26 Anion Gap 18 H Blood Urea Nitrogen 26 H Creatinine 0.75 Glucose Level 224 H Hemoglobin A1c 5.7 Lactic Acid Level 5.3 *H 5.5 *H Calcium Level 8.3 L Total Bilirubin 3.0 H Direct Bilirubin 0.30 H Indirect Bilirubin 2.7 H Aspartate Amino Transf (AST/SGOT) 76 H Alanine Aminotransferase (ALT/SGPT) 39 Alkaline Phosphatase 123 H Ammonia 306 H Troponin I 1.020 *H Total Protein 7.8 Albumin 3.1 L Globulin 4.70 H Albumin/Globulin Ratio 0.65 Acetaminophen Level < 10.0 L Ethyl Alcohol Level < 10.0 Bedside Glucose 231 H Blood Gas Specimen Source Blood arterial Arterial Blood Date Drawn 02/19/2017 9:20:18 PM Arterial Blood pH (Temp corrected) 7.432 Arterial Blood pCO2 (Temp correct) 36.4 Arterial Blood pO2 (Temp corrected) 148.8 H Arterial Blood HCO3 23.7 Arterial Blood Base Excess -0.4 Arterial Blood Oxygen Saturation 98.9 H Jackson Test ACCEPTAB Arterial Blood Gas Puncture Site Right Radial Arterial Blood Carboxyhemoglobin 0.6 Arterial Blood Methemoglobin 0.3 Blood Gas A-a O2 Differential 527.8 H Oxyhemoglobin Percent 98.0 Total Hemoglobin 7.8 L Blood Gas Temperature 37.0 Blood Gas Respiration Rate 16.0 Blood Gas Actual Respiration Rate 29 Blood Gas Modality VENT - AC FiO2 100.0 Blood Gas Tidal Volume 550.0 Blood Gas Low PEEP Setting 5.0 Blood Gas Notified Whom UP Blood Gas Notified Time 02/19/2017 9:40:08 PM Test 02/20/17 00:10 02/20/17 05:40 02/20/17 08:34 02/20/17 08:49 Lactic Acid Level 4.9 *H Lab Scanned Report BLOOD TRANSFUSION Blood Gas Specimen Source Blood arterial Arterial Blood Date Drawn 02/20/2017 9:25:28 AM Arterial Blood pH (Temp corrected) 7.490 H Arterial Blood pCO2 (Temp correct) 36.9 Arterial Blood pO2 (Temp corrected) 69.1 L Arterial Blood HCO3 27.5 H Arterial Blood Base Excess 3.9 H Arterial Blood Oxygen Saturation 93.2 L Jackson Test ACCEPTAB Arterial Blood Gas Puncture Site Right Radial Arterial Blood Carboxyhemoglobin 0.3 Arterial Blood Methemoglobin 0.4 Blood Gas A-a O2 Differential 390.3 H Oxyhemoglobin Percent 92.5 L Total Hemoglobin 8.3 L Blood Gas Temperature 37.0 Blood Gas Respiration Rate 16.0 Blood Gas Actual Respiration Rate 34 Blood Gas Modality VENT - AC FiO2 70.0 Blood Gas Tidal Volume 550.0 Blood Gas Low PEEP Setting 5.0 Blood Gas Notified Whom BT Blood Gas Notified Time 02/20/2017 9:31:46 AM White Blood Count 26.1 #H Red Blood Count 2.68 L Hemoglobin 8.0 L Hematocrit 25.0 L Mean Corpuscular Volume 93.3 Mean Corpuscular Hemoglobin 29.9 Mean Corpuscular Hemoglobin Concent 32.0 Red Cell Distribution Width 19.1 H Platelet Count 128 L Mean Platelet Volume 11.5 H Neutrophils % 81.0 H Band Neutrophils % 1.0 Lymphocytes % 10.0 L Monocytes % 7.0 Basophils % 1.0 Neutrophils # 21.1 H Lymphocytes # 2.6 Monocytes # 1.8 H Basophils # 0.3 H Polychromasia Hypochromasia 1+ Sodium Level 144 Potassium Level 4.1 Chloride Level 107 Carbon Dioxide Level 26 Anion Gap 15 Blood Urea Nitrogen 36 H Creatinine 0.92 Glucose Level 138 # Calcium Level 7.6 L Iron Level 71 Total Iron Binding Capacity 294 Percent Iron Saturation 24 Ferritin 29.0 Total Bilirubin 3.7 H Direct Bilirubin 1.00 #H Indirect Bilirubin 2.7 H Aspartate Amino Transf (AST/SGOT) 84 H Alanine Aminotransferase (ALT/SGPT) 40 Alkaline Phosphatase 114 Total Protein 7.2 Albumin 2.7 L Globulin 4.50 H Albumin/Globulin Ratio 0.60 Test 02/20/17 09:55 02/20/17 10:25 02/20/17 11:48 Urine Color SILVESTRE Urine Clarity CLEAR Urine pH 5.0 Urine Specific [place] 1.015 Urine Ketones 15 Urine Nitrite NEGATIVE Urine Bilirubin 1+ H Urine Ictotest NEGATIVE Urine Urobilinogen 1.0 E.U./dL Urine Leukocyte Esterase TRACE H Urine Microscopic RBC 10-25 Urine Microscopic WBC 0-2 Urine Bacteria OCCASIONAL Urine Hemoglobin 3+ H Urine Glucose NEGATIVE Urine Total Protein TRACE Urine Opiates Screen Positive Urine Barbiturates Negative Urine Amphetamines Screen POSITIVE Urine Benzodiazepines Screen Negative Urine Cocaine Screen Negative Urine Cannabinoids Positive Creatine Kinase 454 H Creatine Kinase Index 1.8 Creatinine Kinase MB (Mass) 8.38 H Troponin I 4.950 *H Hemoglobin 8.0 L Hematocrit 25.3 L Medications Medications Current Medications Pantoprazole 80 mg/Sodium Chloride 100 ml @ 10 mls/hr Q10H IV Last administered on 02/20/17 08:43; Admin Dose 10 MLS/HR; Start 02/20/17 at 00:24 Octreotide Acetate 1 mg/ Sodium Chloride 100 ml @ 5 mls/hr Q20H IV Last administered on 02/20/17 08:21; Admin Dose 5 MLS/HR; Start 02/20/17 at 00:24 Cefepime HCl 50 ml @ 100 mls/hr Q12 IVPB Last administered on 02/20/17 08:22 ; Admin Dose 100 MLS/HR; Start 02/20/17 at 00:30 Propofol (Diprivan) 100 ml @ 3 mls/hr Q12H IV Last administered on 02/20/17 12 :48; Admin Dose 27 MLS/HR; Start 02/20/17 at 02:00 Lorazepam 1 mg 1 mg Q1HWA PRN IV ANXIETY Last administered on 02/20/17 08:29; Admin Dose 1 MG; Start 02/20/17 at 06:00 Norepinephrine/ Dextrose (Levophed/D5W) 500 ml @ 1.87 mls/hr TITRATE IV ; Start 02/20/17 at 09:00 Morphine Sulfate (morphine) 3 mg Q4H PRN IV PAIN LEVEL 4-6 Last administered on 02/20/17 08:07; Admin Dose 3 MG; Start 02/20/17 at 06:00; Stop 02/23/17 at 05:59 Lactulose 100 ml 100 ml Q8 [place] ; Start 02/20/17 at 14:00 Vancomycin HCl 2 gm/Sodium Chloride 500 ml @ 125 mls/hr ONCE ONCE IVPB Last administered on 02/20/17 09:00; Admin Dose 125 MLS/HR; Start 02/20/17 at 10:00 ; Stop 02/20/17 at 13:59 Vancomycin HCl/ Sodium Chloride (Vancocin/NS) 250 ml @ 83.333 mls/ hr Q12H IVPB ; Start 02/20/17 at 22:00 Acetaminophen 650 mg 650 mg Q6H PRN PO PAIN AND OR ELEVATED TEMP Last administered on 02/20/17 09:14; Admin Dose 650 MG; Start 02/20/17 at 09:00 Fentanyl 100 ml @ 2.5 mls/hr TITRATE IV Last administered on 02/20/17 10:41; Admin Dose 2.5 MLS/HR; Start 02/20/17 at 09:30 Sodium Chloride (NS) 1,000 ml @ 125 mls/hr Q8H IV Last administered on 12:13; Admin Dose 125 MLS/HR; Start 02/20/17 at 10:30 Metoprolol Tartrate (Lopressor) 12.5 mg BID GTB Last administered on 02/20/17 12:18; Admin Dose 12.5 MG; Start 02/20/17 at 12:00 FATOUMATA GOMEZ MD February 20, 2017 14:08
[2017-02-20 14:40] LABS: AADO2 Arterial 622.3 mmHg (7.0-24.0); Allen Test ACCEPTAB; Arterial Base Excess -4.5 mmol/L (-3.0-3); Arterial COHb 0.1 % (0.0-3.0); Arterial Fraction of Oxyhgb 81.8 % (93.0-99.0); Arterial HCO3 20.2 mmol/L (22.0-26.0); Arterial MetHb 0.6 % (0.0-1.5); Arterial Total Hemglobin 8.7 g/dl (12.0-18.0); MODE VENT - AC
[2017-02-20] MEDS ORDERED: SOD CHLORIDE 0.9% 250 ML IV* ONE (14:45)
--- NOTE | 2017-02-20 14:50 | PN ---
Date/Time of Note Date/Time of Note DATE: 02/20/17 TIME: 14:38 Assessment/Plan VTE Prophylaxis VTE Prophylaxis Intervention: SCD's Assessment/Plan Chief Complaint/Hosp Course 1. Acute respiratory distress secondary to hepatic encephalopathy Continue vent support, pulmonology consultation appreciated 2. Shock secondary to possible sepsis versus hemorrhagic from GI bleed versus fulminant liver failure Continue ICU monitoring Follow-up on blood and urine cultures Continue vancomycin and cefepime, continue pressor support as needed 3. Anemia, likely secondary to gastrointestinal bleed and/or from chronic anemia from alcohol abuse 4. Upper GI bleed GI consultation appreciated, plan is for EGD today 5. Non-STEMI likely type II from demand ischemia from comorbidities Cardiology consultation appreciated 6. Hyperglycemia secondary to stress-resolved 7. Coagulopathy secondary to DIC and/or underlying liver disease from alcohol Monitor 8. Alcohol abuse with alcohol liver disease Patient will be advised on alcohol withdrawal when stabilized Prophylaxis: SCDs Problems: Subjective 24 Hr Interval Summary Subjective hx not possible: pt non-verbal Exam/Review of Systems Vital Signs Vitals Vital Signs Date Time Temp Pulse Resp B/P Pulse Ox O2 Delivery O2 Flow Rate FiO2 02/20/17 13:18 119 40 92 100 02/20/17 12:30 109/44 Mechanical Ventilator 02/20/17 12:00 100.8 02/19/17 20:20 15 Intake and Output 02/19/17 02/19/17 02/20/17 15:00 23:00 07:00 Intake Total 704 ml Output Total 2050 ml Balance -1346 ml Exam Constitutional: non-verbal ENMT: intubated Respiratory: clear to auscultation Cardiovascular: regular rate and rhythm Gastrointestinal: distended, soft Musculoskeletal: nl extremities to inspection Results Result Diagram: 02/20/17 1148 02/20/17 0849 Results 24 hrs Laboratory Tests Test 02/19/17 20:30 02/19/17 20:38 02/19/17 21:31 02/19/17 22:50 White Blood Count 18.0 H Red Blood Count 2.36 L Hemoglobin 7.4 L Hematocrit 22.6 L Mean Corpuscular Volume 95.8 Mean Corpuscular Hemoglobin 31.4 Mean Corpuscular Hemoglobin Concent 32.7 Red Cell Distribution Width 17.5 H Platelet Count 142 Mean Platelet Volume 11.9 H Neutrophils % 78.2 H Lymphocytes % 8.8 L Monocytes % 11.8 H Eosinophils % 0.0 Basophils % 0.2 Nucleated Red Blood Cells % 0.0 Neutrophils # 14.1 H Lymphocytes # 1.6 Monocytes # 2.1 H Eosinophils # 0.0 Basophils # 0.0 Nucleated Red Blood Cells # 0.0 Prothrombin Time 24.4 H Prothrombin Time Ratio 1.9 INR International Normalized Ratio 2.17 Activated Partial Thromboplast Time 35.7 H Sodium Level 139 Potassium Level 4.2 Chloride Level 99 Carbon Dioxide Level 26 Anion Gap 18 H Blood Urea Nitrogen 26 H Creatinine 0.75 Glucose Level 224 H Hemoglobin A1c 5.7 Lactic Acid Level 5.3 *H 5.5 *H Calcium Level 8.3 L Total Bilirubin 3.0 H Direct Bilirubin 0.30 H Indirect Bilirubin 2.7 H Aspartate Amino Transf (AST/SGOT) 76 H Alanine Aminotransferase (ALT/SGPT) 39 Alkaline Phosphatase 123 H Ammonia 306 H Troponin I 1.020 *H Total Protein 7.8 Albumin 3.1 L Globulin 4.70 H Albumin/Globulin Ratio 0.65 Acetaminophen Level < 10.0 L Ethyl Alcohol Level < 10.0 Bedside Glucose 231 H Blood Gas Specimen Source Blood arterial Arterial Blood Date Drawn 02/19/2017 9:20:18 PM Arterial Blood pH (Temp corrected) 7.432 Arterial Blood pCO2 (Temp correct) 36.4 Arterial Blood pO2 (Temp corrected) 148.8 H Arterial Blood HCO3 23.7 Arterial Blood Base Excess -0.4 Arterial Blood Oxygen Saturation 98.9 H Jackson Test ACCEPTAB Arterial Blood Gas Puncture Site Right Radial Arterial Blood Carboxyhemoglobin 0.6 Arterial Blood Methemoglobin 0.3 Blood Gas A-a O2 Differential 527.8 H Oxyhemoglobin Percent 98.0 Total Hemoglobin 7.8 L Blood Gas Temperature 37.0 Blood Gas Respiration Rate 16.0 Blood Gas Actual Respiration Rate 29 Blood Gas Modality VENT - AC FiO2 100.0 Blood Gas Tidal Volume 550.0 Blood Gas Low PEEP Setting 5.0 Blood Gas Notified Whom UP Blood Gas Notified Time 02/19/2017 9:40:08 PM Test 02/20/17 00:10 02/20/17 05:40 02/20/17 08:34 02/20/17 08:49 Lactic Acid Level 4.9 *H Lab Scanned Report BLOOD TRANSFUSION Blood Gas Specimen Source Blood arterial Arterial Blood Date Drawn 02/20/2017 9:25:28 AM Arterial Blood pH (Temp corrected) 7.490 H Arterial Blood pCO2 (Temp correct) 36.9 Arterial Blood pO2 (Temp corrected) 69.1 L Arterial Blood HCO3 27.5 H Arterial Blood Base Excess 3.9 H Arterial Blood Oxygen Saturation 93.2 L Jackson Test ACCEPTAB Arterial Blood Gas Puncture Site Right Radial Arterial Blood Carboxyhemoglobin 0.3 Arterial Blood Methemoglobin 0.4 Blood Gas A-a O2 Differential 390.3 H Oxyhemoglobin Percent 92.5 L Total Hemoglobin 8.3 L Blood Gas Temperature 37.0 Blood Gas Respiration Rate 16.0 Blood Gas Actual Respiration Rate 34 Blood Gas Modality VENT - AC FiO2 70.0 Blood Gas Tidal Volume 550.0 Blood Gas Low PEEP Setting 5.0 Blood Gas Notified Whom BT Blood Gas Notified Time 02/20/2017 9:31:46 AM White Blood Count 26.1 #H Red Blood Count 2.68 L Hemoglobin 8.0 L Hematocrit 25.0 L Mean Corpuscular Volume 93.3 Mean Corpuscular Hemoglobin 29.9 Mean Corpuscular Hemoglobin Concent 32.0 Red Cell Distribution Width 19.1 H Platelet Count 128 L Mean Platelet Volume 11.5 H Neutrophils % 81.0 H Band Neutrophils % 1.0 Lymphocytes % 10.0 L Monocytes % 7.0 Basophils % 1.0 Neutrophils # 21.1 H Lymphocytes # 2.6 Monocytes # 1.8 H Basophils # 0.3 H Polychromasia Hypochromasia 1+ Sodium Level 144 Potassium Level 4.1 Chloride Level 107 Carbon Dioxide Level 26 Anion Gap 15 Blood Urea Nitrogen 36 H Creatinine 0.92 Glucose Level 138 # Calcium Level 7.6 L Iron Level 71 Total Iron Binding Capacity 294 Percent Iron Saturation 24 Ferritin 29.0 Total Bilirubin 3.7 H Direct Bilirubin 1.00 #H Indirect Bilirubin 2.7 H Aspartate Amino Transf (AST/SGOT) 84 H Alanine Aminotransferase (ALT/SGPT) 40 Alkaline Phosphatase 114 Total Protein 7.2 Albumin 2.7 L Globulin 4.50 H Albumin/Globulin Ratio 0.60 Test 02/20/17 09:55 02/20/17 10:25 02/20/17 11:48 Urine Color SILVESTRE Urine Clarity CLEAR Urine pH 5.0 Urine Specific [place] 1.015 Urine Ketones 15 Urine Nitrite NEGATIVE Urine Bilirubin 1+ H Urine Ictotest NEGATIVE Urine Urobilinogen 1.0 E.U./dL Urine Leukocyte Esterase TRACE H Urine Microscopic RBC 10-25 Urine Microscopic WBC 0-2 Urine Bacteria OCCASIONAL Urine Hemoglobin 3+ H Urine Glucose NEGATIVE Urine Total Protein TRACE Urine Opiates Screen Positive Urine Barbiturates Negative Urine Amphetamines Screen POSITIVE Urine Benzodiazepines Screen Negative Urine Cocaine Screen Negative Urine Cannabinoids Positive Creatine Kinase 454 H Creatine Kinase Index 1.8 Creatinine Kinase MB (Mass) 8.38 H Troponin I 4.950 *H Hemoglobin 8.0 L Hematocrit 25.3 L Medications Medications Current Medications Pantoprazole 80 mg/Sodium Chloride 100 ml @ 10 mls/hr Q10H IV Last administered on 02/20/17 08:43; Admin Dose 10 MLS/HR; Start 02/20/17 at 00:24 Octreotide Acetate 1 mg/ Sodium Chloride 100 ml @ 5 mls/hr Q20H IV Last administered on 02/20/17 08:21; Admin Dose 5 MLS/HR; Start 02/20/17 at 00:24 Cefepime HCl 50 ml @ 100 mls/hr Q12 IVPB Last administered on 02/20/17 08:22 ; Admin Dose 100 MLS/HR; Start 02/20/17 at 00:30 Propofol (Diprivan) 100 ml @ 3 mls/hr Q12H IV Last administered on 02/20/17 12 :48; Admin Dose 27 MLS/HR; Start 02/20/17 at 02:00 Lorazepam 1 mg 1 mg Q1HWA PRN IV ANXIETY Last administered on 02/20/17 14:03; Admin Dose 1 MG; Start 02/20/17 at 06:00 Norepinephrine/ Dextrose (Levophed/D5W) 500 ml @ 1.87 mls/hr TITRATE IV ; Start 02/20/17 at 09:00 Morphine Sulfate (morphine) 3 mg Q4H PRN IV PAIN LEVEL 4-6 Last administered on 02/20/17 08:07; Admin Dose 3 MG; Start 02/20/17 at 06:00; Stop 02/23/17 at 05:59 Lactulose 100 ml 100 ml Q8 [place] ; Start 02/20/17 at 14:00 Vancomycin HCl/ Sodium Chloride (Vancocin/NS) 250 ml @ 83.333 mls/ hr Q12H IVPB ; Start 02/20/17 at 22:00 Acetaminophen 650 mg 650 mg Q6H PRN PO PAIN AND OR ELEVATED TEMP Last administered on 02/20/17 09:14; Admin Dose 650 MG; Start 02/20/17 at 09:00 Fentanyl 100 ml @ 2.5 mls/hr TITRATE IV Last administered on 02/20/17 10:41; Admin Dose 2.5 MLS/HR; Start 02/20/17 at 09:30 Sodium Chloride (NS) 1,000 ml @ 125 mls/hr Q8H IV Last administered on 12:13; Admin Dose 125 MLS/HR; Start 02/20/17 at 10:30 Metoprolol Tartrate (Lopressor) 12.5 mg BID GTB Last administered on 02/20/17 12:18; Admin Dose 12.5 MG; Start 02/20/17 at 12:00 SHIRA TORRES February 20, 2017 14:49
[2017-02-20] MEDS ORDERED: ACETAMINOPHEN 650MG/20.3ML CUP GTB PRN (15:00)
[2017-02-20 15:24] LABS: CK-MB 6.85 ng/ml (0.0-2.4)
[2017-02-20] MEDS: LACTULOSE ENEMA 1,000 ML BTL PR SCH ×2 (15:24→22:00)
[2017-02-20 15:32] LABS: TROPONIN-I 5.45 ng/ml (0.00-0.12)
[2017-02-20 16:08] LABS: WHITE BLOOD COUNT 26.1 10^3/ul (4.8-10.8)
[2017-02-20] MEDS ORDERED: NORepinephrine 8MG/250 ML (PMX 250 ML ONE (16:12)
[2017-02-20] MEDS ORDERED: PHENYLephrine 20MG IN 250 ML 250 ML IV SCH (16:30)
[2017-02-20] MEDS ORDERED: PHENYLephrine 20MG IN 250 ML 250 ML ONE (16:40)
[2017-02-20] MEDS ORDERED: LIDOCAINE 2% (SDV) 5 ML INJ ONE (16:52)
[2017-02-20] MEDS ORDERED: PROPOFOL 0 ML ONE (16:52)
[2017-02-20] MEDS ORDERED: MIDAZOLAM 1 MG/ML 2 ML INJ ONE (16:52)
--- NOTE | 2017-02-20 17:24 | RADRPT ---
PROCEDURE: XR Chest. CLINICAL INDICATION: Check PICC line position. TECHNIQUE: Single frontal view. COMPARISON: 02/19/2017. FINDINGS: There is a left arm PICC line with the tip in the lower superior vena cava. The endotracheal tube a nd nasogastric tube remain in satisfactory position. There is mild atelectasis at the lung bases. The lungs are otherwise clear. The heart size is normal. There is no pleural effusion. There is no pneumothorax. IMPRESSION: 1. Satisfactory position of left arm PICC line. 2. Endotracheal tube and nasogastric tube in satisfactory position. 3. Mild atelectasis at the lung bases. RPTAT: QQ .Petey Silvestre MD, Date Time Electronically viewed and signed by .Petey Silvestre MD, on 02/20/2017 17:24 .R/
[2017-02-20] MEDS ORDERED: SOD CHLORIDE 0.9% 100 ML ONE (17:34)
[2017-02-20] MEDS: PHENYLephrine 160 MG in DEXTROSE 5% 484 ML IV SCH (18:54)
[2017-02-20] MEDS ORDERED: DEXTROSE 50% 50 ML SYRINGE IV PRN (19:00)
[2017-02-20] MEDS ORDERED: VASOPRESSIN 60 UNIT in DEXTROSE 5% 57 ML IV SCH (19:30)
[2017-02-20 19:58] LABS: HEMATOCRIT 30.6 % (42.0-52.0); HEMOGLOBIN 9.4 g/dl (14.0-18.0)
[2017-02-20] MEDS: DEXTROSE 50% 50 ML SYRINGE IV PRN ×3 (20:20→22:35)
--- NOTE | 2017-02-20 20:22 | QN ---
Documentation Comment I was called out of the emergency department to room 114 for a CODE BLUE event. The patient was receiving high-quality CPR and being bagged by respiratory therapy. I immediately took over as the CODE BLUE leader and ran the code. Please see the code sheet for full details. The patient received 1 mg of epinephrine and there was return of spontaneous circulation. The final results of the CODE BLUE was return of spontaneous circulation. HPI: Please note the history and physical exam is limited as the patient is receiving CPR at this time. The patient is in full cardiac arrest. Physical exam: The patient is being bagged by respiratory therapy. There is no movement. GCS is 3. SANDIP MARTINEZ MD February 20, 2017 20:22
[2017-02-20 20:28] LABS: CK-MB 7.68 ng/ml (0.0-2.4)
[2017-02-20] MEDS ORDERED: DEXTROSE 50% 50 ML SYRINGE ONE ×2 (21:02→22:32)
[2017-02-20] MEDS ORDERED: DOPamine 800 MG in DEXTROSE 5% 230 ML IV SCH (22:00)
[2017-02-20] MEDS ORDERED: DOPamine-D5W 1.6 MG/ML 250 ML ONE (22:02)
[2017-02-20] MEDS ORDERED: DEXTROSE 5%-0.9% NACL 1,000 ML IV SCH (23:00)
[2017-02-21] VITALS (24 sets, daily range): BP systolic 64–88; BP diastolic 37–45; PULSE 0–115; RESP 0–39
[2017-02-21] MEDS ORDERED: DEXTROSE 50% 50 ML SYRINGE ONE
[2017-02-21] MEDS ORDERED: NALOXONE 2 MG SYG ONE
[2017-02-21] MEDS ORDERED: EPINEPHrine 0.1 MG/ML SYG ONE
[2017-02-21] MEDS ORDERED: ARTIFICIAL TEARS 15 ML OPH BOTH EYES PRN (00:30)
[2017-02-21] MEDS ORDERED: EPINEPHrine 4 MG in DEXTROSE 5% 246 ML IV SCH (01:00)
[2017-02-21 01:04] LABS: HEMATOCRIT 30.1 % (42.0-52.0)
[2017-02-21] MEDS: DEXTROSE 50% 50 ML SYRINGE IV PRN (01:10)
[2017-02-21 01:50] LABS: CK-MB 30.2 ng/ml (0.0-2.4)
[2017-02-21 02:18] LABS: TROPONIN-I 9.92 ng/ml (0.00-0.12)
[2017-02-21] MEDS: PANTOPRAZOLE IV 80 MG in SOD CHLORIDE 0.9% 100 ML IV SCH (03:06)
[2017-02-21] MEDS ORDERED: NA BICARBONATE 8.4% 50 ML SYG ONE (03:54)
[2017-02-21] MEDS ORDERED: NA BICARBONATE 8.4% 50 ML SYG IV ONE ×2 (03:56→04:13)
[2017-02-21] MEDS ORDERED: SODIUM BICARBONATE (IV ADD) 150 MEQ in DEXTROSE 5% 850 ML IV SCH (04:00)
[2017-02-21] MEDS: PHENYLephrine 160 MG in DEXTROSE 5% 484 ML IV SCH (04:22)
--- NOTE | 2017-02-21 05:09 | EN ---
Date/Time of Note Date/Time of Note DATE: 02/21/17 TIME: 05:06 ER Progress Note CODE BLUE A CODE BLUE was called to the ICU. The nurses report that the patient became bradycardic and lost his pulse. When I arrived CPR was in progress and he had received epinephrine. After 2 minutes the pulse was checked and there was a return of pulse with a heart rate of 44 that was weak and thready this was obtained by Doppler at bedside Patient is intubated and is on 5 different pressors for blood pressure support and had received 4 units of packed red blood cells today and the patient had a CODE BLUE earlier this evening around 8 PM I discussed with the family the severity of the situation, and after discussion he decided that they would no longer pursue CPR and let him pass naturally. Just after discussion the patient lost his pulse again and the family decided to "let him go". The family was at bedside Condition: Diagnosis: Cardiac arrest, GI bleed, hypotension MANJINDER FROST DO February 21, 2017 05:09
[2017-02-21 05:10] LABS: ADD SCAN DIFF NO
[2017-02-21 05:22] LABS: ABNORMAL IP MESSAGE 1; HEMATOCRIT 29.5 % (42.0-52.0); HEMOGLOBIN 8.5 g/dl (14.0-18.0); MEAN CORPUSCULAR HEMOGLOBIN 30.1 pg (29.0-33.0); MEAN CORPUSCULAR HGB CONC 28.8 g/dl (32.0-37.0); MEAN CORPUSCULAR VOLUME 104.6 fl (82.0-101.0); MEAN PLATELET VOLUME 11.9 fl (7.4-10.4); PLATELET COUNT 96 10^3/UL (140-415); RED BLOOD COUNT 2.82 10^6/ul (4.70-6.10); RED CELL DISTRIBUTION WIDTH 21.4 % (11.5-14.5); WHITE BLOOD COUNT 28.5 10^3/ul (4.8-10.8)
[2017-02-21 05:53] LABS: CK-MB 46.9 ng/ml (0.0-2.4)
[2017-02-21 05:54] LABS: TROPONIN-I 14.2 ng/ml (0.00-0.12)
[2017-02-21 06:33] LABS: ALBUMIN/GLOBULIN RATIO 0.58; BILIRUBIN,DIRECT 1.6 mg/dl (0.00-0.20); BILIRUBIN,TOTAL 2.6 mg/dl (0.2-1.3); CALCIUM 6.6 mg/dl (8.4-10.2); CREATININE 4.62 mg/dl (0.61-1.24); POTASSIUM 4.9 mmol/L (3.5-5.1); TOTAL PROTEIN 5.4 g/dl (6.1-8.1)
--- NOTE | 2017-02-21 08:54 | RADRPT ---
PROCEDURE: US guidance for PICC line CLINICAL INDICATION: PICC line placement TECHNIQUE: Multiple real-time images were acquired of the patient's arm utilizing a high resolutio n transducer. This was performed by the PICC line nurse for venous access. COMPARISON: None FINDINGS: Ultrasound guidance for PICC line placement. IMPRESSION: Ultrasound guidance for PICC line placement. RPTAT: AA .Yung Betts MD, MD Date Time Electronically viewed and signed by .Yung Betts MD, on 02/21/2017 08:54 .S/
[2017-02-21 09:44] LABS: LYMPHOCYTES # 1.4 10^3/ul (0.8-2.9); MONOCYTE # 1.4 10^3/ul (0.3-0.9); MYELOCYTES # 0.3; NEUTROPHIL # 12.3 10^3/ul (1.6-7.5)
--- NOTE | 2017-02-21 14:35 | DS ---
DATE OF ADMISSION: 02/19/2017 DATE OF DISCHARGE: 02/21/2017 DIAGNOSES: 1. Cardiopulmonary failure secondary to shock and acute respiratory distress syndrome from liver fa ilure. 2. History of alcohol abuse with alcoholic liver disease. HOSPITAL COURSE: The patient is a 42-year-old male with a history of alcohol abuse and likely under lying alcoholic liver disease. The patient comes in with altered mental status, unresponsiveness. He was intubated in the ED. The patient's ammonia level was notably severely elevated. The patient did go into shock and was started on multiple pressors. Lactic acid was severely elevated. The pa petey appeared to be developing a fulminant liver failure and was going to shock as a result. He al so became severely hypoxic in spite of aggressive ventilator support with the development of possibl e ARDS. The patient ultimately did decompensate further and the patient did ultimately go into card iac arrest. ACLS was initiated and family decided to ultimately stop the ACLS. The patient was pro nounced by the sail repair person the morning of 02/21/2017. Dictated By: SHIRA TORRES MD BS/NTS Conf#: [id number] DID#: [id number]
== END 2017-02-21 05:15 | disposition expired | DRG 871 ==
LOC: E/R 20:20 → ICU 22:58
PROVIDERS: ADMIT Internal Medicine; ATTEND Internal Medicine
PROC: 5A1945Z Respiratory Ventilation, 24-96 Consecutive Hours (ICD-10-PCS; 2017-02-19)
PROC: 0BH17EZ Insertion of Endotracheal Airway into Trachea, Via Natural or Artificial Opening (ICD-10-PCS; 2017-02-19)
PROC: 30233N1 Transfusion of Nonautologous Red Blood Cells into Peripheral Vein, Percutaneous Approach (ICD-10-PCS; principal; 2017-02-20)
DX: A41.9 Sepsis, unspecified organism (principal); J96.01 Acute respiratory failure with hypoxia; I21.4 Non-ST elevation (NSTEMI) myocardial infarction; R65.21 Severe sepsis with septic shock; I85.11 Secondary esophageal varices with bleeding; J69.0 Pneumonitis due to inhalation of food and vomit; K70.40 Alcoholic hepatic failure without coma; D62 Acute posthemorrhagic anemia; D68.4 Acquired coagulation factor deficiency; N19 Unspecified kidney failure; K70.9 Alcoholic liver disease, unspecified; R73.9 Hyperglycemia, unspecified; J32.0 Chronic maxillary sinusitis; R40.2434 Glasgow coma scale score 3-8, 24 hours or more after hospital admission; I46.9 Cardiac arrest, cause unspecified
CPT/HCPCS: 31500; 36415; 36430; 36569; 36600; 70450; 71010; 76937; 80053; 80306; 80307; 81001; 82140; 82550; 82553; 82728; 82803; 82962; 83036; 83540; 83605; 84484; 85014; 85018; 85025; 85610; 85730; 86850; 86870; 86900; 86901; 86902; 86920; 87040; 87086; 92950; 93005; 93306; 94002; 94003; 94770; 96374; C9113; J0171; J0692; J1265; J2060; J2250; J2270; J2310; J2370; J2543; J3010; J3370; J7030; J7040; J7042; J7050; J7060; J7070; P9016